=== PATIENT | female | born 1990 | race Caucasian/White ===

== ENCOUNTER 2018-08-18 15:21 | Emergency (ER) | payer OTHER, SELFPAY ==
[~2018-08-18] VITALS: Ht 160 cm; Wt 76.4 kg
[2018-08-18] MEDS ORDERED: LISI-538 PO (15:37)
[2018-08-18] MEDS ORDERED: CYMB60CA3 PO (15:37)
[2018-08-18] MEDS ORDERED: CONC18TA14 PO (15:38)
[2018-08-18] MEDS ORDERED: AMBI10TA PO (15:38)
[2018-08-18] MEDS ORDERED: LIDOCAINE 2% MDV 20 ML VIAL SC ONE (17:15)
[2018-08-18] MEDS ORDERED: ADACEL/BOOSTRIX VACCINE (DIPHTH/PERTUSS/ACELL/TETANUS)0.5ML SYR (90715) IM ONE (17:45)
[2018-08-18 17:50] VITALS: BP 135/98
== END 2018-08-18 17:54 | disposition home or self-care (01) ==
LOC: M ED 15:21
DX: S61.212A Laceration without foreign body of right middle finger without damage to nail, initial encounter (principal); W25.XXXA Contact with sharp glass, initial encounter; Y92.099 Unspecified place in other non-institutional residence as the place of occurrence of the external cause; Y93.G3 Activity, cooking and baking; Y99.9 Unspecified external cause status; F90.9 Attention-deficit hyperactivity disorder, unspecified type; Z72.0 Tobacco use; Z79.899 Other long term (current) drug therapy; Z88.0 Allergy status to penicillin; Z88.1 Allergy status to other antibiotic agents; Z91.040 Latex allergy status

== ENCOUNTER 2020-01-06 16:22 | Emergency (ER) | payer OTHER, SELFPAY ==
[~2020-01-06] VITALS: Ht 160 cm; Wt 76.9 kg
[~2020-01-06 16:22] MED LIST: AMBI10TA PO; CONC18TA14 PO; CYMB60CA3 PO; LISI-538 PO
[2020-01-06] MEDS ORDERED: VYVA50CA4 PO (16:28)
[2020-01-06] MEDS ORDERED: LIDOCAINE 2% MDV 20ML VIAL SC ONE (17:00)
[2020-01-06] MEDS ORDERED: PERCOCET 5MG/325MG TAB PO ONE (17:00)
[2020-01-06] MEDS ORDERED: OXYCODONE/APAP 5MG/325MG(BULK FOR ED) 1 TABLET PO ONE (17:30)
[2020-01-06 17:38] VITALS: BP 170/106
== END 2020-01-06 17:49 | disposition home or self-care (01) ==
LOC: M ED 16:22
DX: K64.5 Perianal venous thrombosis (principal); Z79.899 Other long term (current) drug therapy; I10 Essential (primary) hypertension; F90.9 Attention-deficit hyperactivity disorder, unspecified type; Z88.0 Allergy status to penicillin; Z88.8 Allergy status to other drugs, medicaments and biological substances; Z91.030 Bee allergy status

== ENCOUNTER 2021-01-27 12:51 | Emergency (ER) | payer OTHER, SELFPAY ==
[~2021-01-27] VITALS: Ht 160 cm; Wt 65.9 kg
[~2021-01-27 12:51] MED LIST changes: -CYMB60CA3 PO; +CYMB60CA4 PO; -LISI-538 PO; +LISI20TA33 PO; +VYVA50CA4 PO
[2021-01-27 14:43] LABS: HEMOGLOBIN 12.9 g/dl (12.0-15.5); MEAN CORPUSCULAR HEMOGLOBIN 25.4 pg (27.0-33.0); MEAN CORPUSCULAR HGB CONC 31.5 g/dl (32.0-36.5); MEAN CORPUSCULAR VOLUME 80.9 fl (80.0-96.0); PLATELET COUNT, AUTOMATED 236 10^3/uL (150-450); RED BLOOD COUNT 5.07 10^6/uL (4.00-5.40); WHITE BLOOD COUNT 11.1 10^3/uL (4.0-10.0)
[2021-01-27] MEDS ORDERED: KETOROLAC 30 MG/ML 1ML VIAL IV ONE (14:50)
[2021-01-27] MEDS ORDERED: NS 1,000 ML IV ONE (14:50)
[2021-01-27] MEDS ORDERED: ONDANSETRON 4MG/2ML VIAL IV ONE (14:50)
[2021-01-27 15:21] LABS: ALBUMIN 4.2 GM/DL (3.2-5.2); ALT/SGPT 28 U/L (12-78); BILIRUBIN,DIRECT < 0.1 MG/DL (0.0-0.2); BILIRUBIN,TOTAL 0.4 MG/DL (0.2-1.0); LIPASE 77 U/L (73-393); TOTAL PROTEIN 8.2 GM/DL (6.4-8.2)
[2021-01-27] MEDS ORDERED: ONDA-83 PO (15:58)
[2021-01-27] MEDS ORDERED: KETO10TAB PO (15:58)
[2021-01-27] MEDS ORDERED: CIPR-249 PO (15:58)
[2021-01-27 16:07] VITALS: BP 223/110
[2021-01-27] MEDS ORDERED: CIPROFLOXACIN 500MG TABLET PO ONE (17:00)
== END 2021-01-27 16:16 | disposition home or self-care (01) ==
LOC: M ED 12:51
DX: N39.0 Urinary tract infection, site not specified (principal); N20.0 Calculus of kidney; I10 Essential (primary) hypertension; Z87.442 Personal history of urinary calculi; Z79.899 Other long term (current) drug therapy; Z88.0 Allergy status to penicillin; Z88.1 Allergy status to other antibiotic agents; Z91.040 Latex allergy status; Z91.030 Bee allergy status
CPT/HCPCS: 74176; 80047; 80076; 81001; 83690; 84702; 85027; 87088; 87186; 96361; 96374; 96375; 99284; J1885; J2405